=== PATIENT | female | born 1985 | race African-American/Black ===

== ENCOUNTER 2018-04-19 12:53 | Inpatient (IN) | payer OTHER ==
[~2018-04-19 12:53] MED LIST: OXYTOCIN 30 UNITS/LR 500 ML BAG IV
[2018-04-19] MEDS ORDERED: OXYCODONE/ACETAMINOPHEN (5/325) TAB PO (15:30)
[2018-04-19] MEDS ORDERED: METHYLERGONOVINE 0.2 MG INJ IM (15:30)
[2018-04-19] MEDS ORDERED: OXYTOCIN 30 UNITS/LR 500 ML IV (15:30)
[2018-04-19] MEDS ORDERED: CARBOPROST 250 MCG INJ IM (15:30)
[2018-04-19] MEDS ORDERED: MISOPROSTOL 200 MCG TAB PR (15:30)
[2018-04-19] MEDS ORDERED: LIDOCAINE 1% (MPF) 30 ML INJ INJ (15:30)
[2018-04-19] MEDS ORDERED: BUTORPHANOL 2 MG INJ IV (15:30)
[2018-04-19] MEDS ORDERED: IBUPROFEN 600 MG TAB PO (15:30)
[2018-04-19] MEDS: LACTATED RINGER'S 1,000 ML IV* ×2 (16:02→16:54)
[2018-04-19 16:29] LABS: ADD MAN DIFF? NO
[2018-04-19 16:31] LABS: BASOPHILS % 0.3 % (0.0-2.0); EOSINOPHILS % 0.3 % (0.0-7.0); HEMATOCRIT 38.4 % (37.0-47.0); HEMOGLOBIN 13.3 g/dl (12.0-16.0); LYMPHOCYTES # 1.5 10^3/ul (0.8-2.9); LYMPHOCYTES % 19.1 % (15.0-51.0); MEAN CORPUSCULAR HEMOGLOBIN 29.5 pg (29.0-33.0); MEAN CORPUSCULAR HGB CONC 34.6 g/dl (32.0-37.0); MEAN CORPUSCULAR VOLUME 85.1 fl (82.0-101.0); MEAN PLATELET VOLUME 10.7 fl (7.4-10.4); MONOCYTE # 0.5 10^3/ul (0.3-0.9); MONOCYTES % 5.9 % (0.0-11.0); NEUTROPHIL # 5.9 10^3/ul (1.6-7.5); NEUTROPHILS % 73.9 % (39.0-77.0); PLATELET COUNT 155 10^3/UL (140-415); RED BLOOD COUNT 4.51 10^6/ul (4.20-5.40); RED CELL DISTRIBUTION WIDTH 13.4 % (11.5-14.5)
[2018-04-19 16:51] LABS: INR 0.87; PROTIME 11.9 Sec (11.9-14.9); PT RATIO 0.9
[2018-04-19 16:52] LABS: PARTIAL THROMBOPLASTIN TIME 29.2 Sec (23.0-35.0)
[2018-04-19] MEDS: AMPICILLIN 2 GM/NS (PMX) 100 ML IV (16:56)
[2018-04-19 17:33] LABS: HEPATITIS B SURFACE ANTIGEN NEGATIVE (NEGATIVE)
[2018-04-19] MEDS: OXYTOCIN 30 UNITS/LR 500 ML IV (18:19)
[2018-04-19] MEDS: AMPICILLIN 1 GM/NS (PMX) 50 ML IV (21:29)
[2018-04-19] MEDS ORDERED: morphine SULFATE/PF (10 MG/10 ML) INJ (22:29)
[2018-04-19] MEDS ORDERED: PHENYLephrine (100 MCG/ML) 5ML SYG ×2 (22:29→23:23)
[2018-04-19] MEDS ORDERED: OXYTOCIN 10 UNIT INJ (22:29)
[2018-04-19] MEDS ORDERED: ONDANSETRON 4 MG INJ (22:29)
[2018-04-19] MEDS ORDERED: BUPIVACAINE 0.75%/DEXT (SPINAL) 2 ML INJ (22:30)
[2018-04-19] MEDS: CEFAZOLIN 2 GM/50 ML (PMX) 50 ML IVPB (22:35)
[2018-04-20] MEDS ORDERED: ONDANSETRON 4 MG INJ IV ×2 (00:30→02:00)
[2018-04-20] MEDS ORDERED: morphine 2 MG INJ IV (00:30)
[2018-04-20] MEDS ORDERED: NALOXONE (0.4 MG/ML) INJ IV (00:30)
[2018-04-20] MEDS: AMPICILLIN 1 GM/NS (PMX) 50 ML IV (00:42)
[2018-04-20] MEDS: OXYTOCIN 30 UNITS/LR 500 ML IV ×4 (00:42→02:03)
[2018-04-20] MEDS: LACTATED RINGER'S 1,000 ML IV ×3 (01:35→18:14)
[2018-04-20] MEDS ORDERED: OXYTOCIN 30 UNITS/LR 500 ML IV (02:00)
[2018-04-20] MEDS ORDERED: METHYLERGONOVINE 0.2 MG INJ IM (02:00)
[2018-04-20] MEDS ORDERED: BISACODYL 10 MG SUPP PR (02:00)
[2018-04-20] MEDS ORDERED: MAGNESIUM HYDROXIDE 30ML CUP PO (02:00)
[2018-04-20] MEDS ORDERED: MISOPROSTOL 200 MCG TAB PR (02:00)
[2018-04-20] MEDS ORDERED: CARBOPROST 250 MCG INJ IM (02:00)
[2018-04-20] MEDS: CEFAZOLIN 1 GM/50 ML (PMX) 50 ML IV ×3 (02:24→17:21)
[2018-04-20] MEDS: KETOROLAC 30 MG INJ IV ×2 (03:00→22:09)
[2018-04-20 16:43] LABS: RAPID PLASMA REAGIN NONREACTIVE (NR)
[2018-04-20] MEDS: LANOLIN 7 GM TUBE TOP (22:10)
[2018-04-20] MEDS ORDERED: OXYCODONE/ACETAMINOPHEN (5/325) TAB PO ×2 (22:25)
[2018-04-21] MEDS: LACTATED RINGER'S 1,000 ML IV ×3 (01:35→17:35)
[2018-04-21] MEDS: IBUPROFEN 600 MG TAB PO ×3 (05:48→17:54)
[2018-04-21 07:19] LABS: ADD MAN DIFF? NO
[2018-04-21 07:21] LABS: BASOPHILS % 0.4 % (0.0-2.0); EOSINOPHILS # 0.1 10^3/ul (0.0-0.5); EOSINOPHILS % 0.8 % (0.0-7.0); HEMATOCRIT 29.9 % (37.0-47.0); HEMOGLOBIN 10.4 g/dl (12.0-16.0); LYMPHOCYTES # 1.3 10^3/ul (0.8-2.9); LYMPHOCYTES % 16.4 % (15.0-51.0); MEAN CORPUSCULAR HEMOGLOBIN 29.7 pg (29.0-33.0); MEAN CORPUSCULAR HGB CONC 34.8 g/dl (32.0-37.0); MEAN CORPUSCULAR VOLUME 85.4 fl (82.0-101.0); MEAN PLATELET VOLUME 10.5 fl (7.4-10.4); MONOCYTE # 0.5 10^3/ul (0.3-0.9); NEUTROPHIL # 6.1 10^3/ul (1.6-7.5); NEUTROPHILS % 75.9 % (39.0-77.0); PLATELET COUNT 136 10^3/UL (140-415); RED CELL DISTRIBUTION WIDTH 13.7 % (11.5-14.5)
[2018-04-21 07:43] LABS: ALANINE AMINOTRANSFERASE 30 IU/L (13-69); ALBUMIN 2.3 g/dl (3.3-4.9); ALBUMIN/GLOBULIN RATIO 0.79; ALKALINE PHOSPHATASE 67 IU/L (42-121); ANION GAP 5 (5-13); ASPARTATE AMINO TRANSFERASE 42 IU/L (15-46); BILIRUBIN,INDIRECT 0.5 mg/dl (0-1.1); BILIRUBIN,TOTAL 0.5 mg/dl (0.2-1.3); BLOOD UREA NITROGEN 5 mg/dl (7-20); CALCIUM 8.2 mg/dl (8.4-10.2); CARBON DIOXIDE 27 mmol/L (21-31); CHLORIDE 103 mmol/L (97-110); CREATININE 0.63 mg/dl (0.44-1.00); GLUCOSE 66 mg/dl (70-220); POTASSIUM 3.8 mmol/L (3.5-5.1); SODIUM 135 mmol/L (135-144); TOTAL PROTEIN 5.2 g/dl (6.1-8.1)
[2018-04-22] MEDS: IBUPROFEN 600 MG TAB PO ×3 (00:25→11:25)
[2018-04-22] MEDS: LACTATED RINGER'S 1,000 ML IV (01:35)
[2018-04-22] MEDS: SENNA/DOCUSATE NA (8.6MG/50MG) TAB PO (08:48)
[2018-04-22] MEDS: ACETAMINOPHEN 325 MG TAB PO (12:27)
== END 2018-04-22 14:05 | disposition home or self-care (01) | DRG 785 ==
LOC: L-D 12:53 → PP1 04-20 03:30 → L-D 22:10
PROVIDERS: Obstetrics & Gynecology
PROC: 3E033VJ Introduction of Other Hormone into Peripheral Vein, Percutaneous Approach (ICD-10-PCS; 2018-04-19)
PROC: 10D00Z1 Extraction of Products of Conception, Low, Open Approach (ICD-10-PCS; principal; 2018-04-20)
PROC: 0UB70ZZ Excision of Bilateral Fallopian Tubes, Open Approach (ICD-10-PCS; 2018-04-20)
DX: O41.03X0 Oligohydramnios, third trimester, not applicable or unspecified (principal); O76 Abnormality in fetal heart rate and rhythm complicating labor and delivery; O99.213 Obesity complicating pregnancy, third trimester; E66.01 Morbid (severe) obesity due to excess calories; Z3A.40 40 weeks gestation of pregnancy; Z37.0 Single live birth; Z30.2 Encounter for sterilization
CPT/HCPCS: 76815; 76818; 80053; 85025; 85610; 85730; 86592; 86850; 86900; 86901; 87340; 88302; 88307; 90686; 99464